=== PATIENT | female | born 1995 | race Caucasian/White ===

== ENCOUNTER 2017-07-29 20:31 | Emergency (ER) | payer MEDICAID, OTHER ==
[2017-07-29 21:02] LABS: Bilirubin Negative (Negative); Blood, Urine Negative (Negative); Glucose, Urine (Dipstick) Negative (Negative); Ketone, Urine > or equal to 80 mg/dL (Negative); Nitrite Negative (Negative); Protein, Urine (Dipstick) Trace mg/dL (Neg-Trace)
[2017-07-29] MEDS ORDERED: Mag-Al 1200 mg/1200 mg/30 ML UDCUP ONE (21:36)
[2017-07-29] MEDS ORDERED: Lidocaine Viscous Sol 2% 15 ml UD Cup ONE (21:36)
[2017-07-29 21:38] LABS: #Lymphocytes 1.5 thou/uL (1.20-3.40); #Monocytes 0.5 thou/uL (0.11-0.59); #Neutrophils 7.3 thou/uL (1.40-6.50); %Basophils 0.5 % (0.0-1.0); %Eosinophils 0.4 % (0.0-10.0); %Lymphocytes 15.9 % (21.0-51.0); %Monocytes 5.6 % (0.0-10.0); Hematocrit 38.3 % (36.0-47.0); Mean Platelet Volume 8.8 fL (7.4-10.4); Red Blood Cell (RBC) Count 3.77 mill/uL (4.20-5.40); White Blood Cell (WBC) Count 9.5 thou/uL (4.8-10.8)
[2017-07-29] MEDS ORDERED: Metoclopramide HCl 10 MG TAB PO SCH (21:45)
[2017-07-29 21:50] LABS: ALT (SGPT) 17 U/L (8-55); AST (SGOT) 18 U/L (5-34); Alkaline Phosphatase 48 U/L (40-150); Anion Gap 13 mmol/L (10-20); BUN (Urea Nitrogen) 8 mg/dL (7.0-18.7); Bilirubin, Total 0.6 mg/dL (0.2-1.2); Calc. Creatinine Clearance 0 mL/min (70-130); Calcium 9.3 mg/dL (7.8-10.44); Carbon Dioxide 22 mmol/L (22-29); Chloride 104 mmol/L (98-107); Estimated GFR-MDRD Greater than 90; Globulin 3.3 g/dL (2.4-3.5); Lipase 13 U/L (8-78); Protein, Total 7.2 g/dL (6.0-8.3)
== END 2017-07-29 23:36 | disposition home or self-care (01) ==
LOC: ERS 20:31
DX: O99.611 Diseases of the digestive system complicating pregnancy, first trimester (principal); K52.9 Noninfective gastroenteritis and colitis, unspecified; O99.341 Other mental disorders complicating pregnancy, first trimester; F41.9 Anxiety disorder, unspecified; Z79.899 Other long term (current) drug therapy; Z3A.13 13 weeks gestation of pregnancy
CPT/HCPCS: 36415; 80053; 81003; 83690; 84702; 85025

== ENCOUNTER 2017-09-21 10:34 | Outpatient (CLI) | payer OTHER ==
--- NOTE | 2017-09-21 13:14 | ULT ---
OB ULTRASOUND: HISTORY: female. Evaluate size, dates, and anatomy. COMPARISON: None. TECHNIQUE: Multiplanar araya-scale and color Doppler images were obtained in a transabdominal ultrasound. FINDINGS: There is a single live intrauterine with a heart rate of 143 beats per minute. A marlin vey was performed, which is unremarkable. The head, intracranial structures, heart, stomach, kidneys , umbilical cord, umbilical cord insertion, spine, face, and extremities were evaluated. Estimated f etal weight is 378 g. The average age of the fetus based off today's examination is 20 weeks and 5 d ays. The following measurements were taken and dates based off these measurements are as follows: BPD: 4.96 cm (21 weeks and 0 days) HC: 18.02 cm (20 weeks and 3 days) AC: 15.30 cm (20 weeks and 4 days) FL: 3.55 cm (21 weeks and 2 days) The placenta is posterior in location without evidence of placenta previa. Amniotic fluid volume is subjective within normal limits. IMPRESSION: Single live intrauterine with an estimated age of 20 weeks and 5 days. POS: [facility]
== END 2017-09-21 10:35 | disposition home or self-care (01) ==
LOC: ULT 10:34
PROVIDERS: ATTEND Family Medicine
DX: Z34.92 Encounter for supervision of normal pregnancy, unspecified, second trimester (principal); Z3A.20 20 weeks gestation of pregnancy
CPT/HCPCS: 76805

== ENCOUNTER 2018-01-03 14:34 | Day surgery (SDC) | payer OTHER ==
[2018-01-03 15:05] VITALS: BP 117/75; TEMP 98; BMI 30.2
--- NOTE | 2018-01-03 15:45 | PDOC.LDHP ---
Labor and Delivery H&P HPI: CC: In triage for irregular (few) contractions at 36b weeks [address] Mendoza Alves HPI: 22 yo g1 at 36 weeks 1 day, gere for few contractions. No LOF, no VB, no headaches, no trauma. No issues. good F< Review of Systems: Complete [place] done and as per HPI Current gestational age (weeks): 36 (1 day) Dating criteria: last menstrual period Grav: 1 Para: 0 Current complications: none Abnormal US findings: No Current medications: pre-kolby vitamins Previous surgical history: none Allergies/Adverse Reactions: Allergies Allergy/AdvReac Type Severity Reaction Status Date / Time No Known Drug Allergies Allergy Unverified 07/29/17 21:39 Social history: none - Physical Exam Vital signs reviewed and normal: yes General: NAD Heart: RRR Lungs: CTAB Abdomen: gravid Extremeties: no edema FHT: category 1 [place] contractions every: Few - Vaginal Exam cm dilated: 0 Station: -3 - Assessment Threatened labor - Plan Plan: observation in L&D, other (No evidence true labor at this time No real contraction pattern OK to keep follow up patient seen at bedside)
== END 2018-01-03 16:10 | disposition home health service (06) ==
LOC: L&D/OP 14:34
PROVIDERS: ATTEND Family Medicine
DX: O47.03 False labor before 37 completed weeks of gestation, third trimester (principal); Z3A.36 36 weeks gestation of pregnancy; Z79.899 Other long term (current) drug therapy
CPT/HCPCS: 59025; 99282

== ENCOUNTER 2018-02-03 09:54 | Inpatient (IN) | payer OTHER ==
--- NOTE | 2018-02-03 01:36 | HP ---
HISTORY OF PRESENT ILLNESS: This is a 22-year-old white female G1, P0 at 40 weeks and 4 days female admitted for post-date induction. Patient has been having contractions for the past several days. S he was seen in the office on the day prior to admit and had to dilated 2-3 cm, 50%, +1 any anterior p osition. No complaints of rupture of membranes. PAST MEDICAL HISTORY: Unremarkable. PAST SURGICAL HISTORY: None. FAMILY HISTORY: Unremarkable. SOCIAL HISTORY: She works for a [employer]. She is a nonsmoker, does not drink, is . REVIEW OF SYSTEMS: As above. PHYSICAL EXAMINATION: VITAL SIGNS: Stable, afebrile. HEENT: Clear. HEART: Regular rate and rhythm without murmur. LUNGS: Clear. ABDOMEN: Soft, gravid. EXTREMITIES: With no edema. LABORATORY DATA AND X-RAY FINDINGS: GBS negative, HIV negative. Hematocrit 32. GC chlamydia negati ve. Paps are normal. History of chlamydia treated. RPR negative. Thyroid normal. Hepatitis B neg ative. HIV negative. Blood type A minus RhoGAM has been given. Rubella immune. ASSESSMENT: 1. A 40 weeks 4-day intrauterine in early labor. 2. Rh negative, RhoGAM has been given. 3. History of chlamydia treated and retested negative. PLAN: 1. Routine L&D orders. 2. Routine anesthesia eval. 3. Anticipate vaginal delivery. 4. Pitocin augmentation.
[2018-02-03 10:08] VITALS: BMI 31.2
[2018-02-03] MEDS ORDERED: HYDROcodone/Acetaminophen 5/325 mg Tablet PO PRN (10:54)
[2018-02-03] MEDS ORDERED: Ibuprofen 800 MG TAB PO PRN (10:54)
[2018-02-03] MEDS ORDERED: Misoprostol 200 MCG TAB PR PRN (10:54)
[2018-02-03] MEDS ORDERED: NS / Oxytocin 40 units/1000ml 1,000 ML IV PRN (10:54)
[2018-02-03] MEDS ORDERED: Lidocaine 1% (PF) 30 ML VIAL SC PRN (10:54)
[2018-02-03] MEDS ORDERED: Acetaminophen 500 MG TAB PO PRN (10:54)
[2018-02-03] MEDS ORDERED: Ondansetron HCl/PF 4 MG/2 ML Vial IVP PRN ×2 (10:54→18:50)
[2018-02-03] MEDS ORDERED: Butorphanol Tartrate 1 MG/ML VIAL SLOW IVP PRN (10:54)
[2018-02-03] MEDS ORDERED: Promethazine HCl 25 MG/ML VIAL IM PRN ×2 (10:54→18:50)
[2018-02-03] MEDS ORDERED: NS w/ Oxytocin 10 units 500 ML IV SCH (10:54)
[2018-02-03 11:35] LABS: Hemoglobin 10.6 g/dL (12.0-16.0); Mean Corpuscular HGB CONC 34.5 g/dL (32.0-36.0); Mean Corpuscular Hemoglobin 30.6 pg (27.0-31.0); Mean Corpuscular Volume 88.8 fL (78.0-98.0); Mean Platelet Volume 10.4 fL (7.4-10.4); Platelet Count 107 thou/uL (130-400); RBC Distribution Width 13.2 % (11.5-14.5); Red Blood Cell (RBC) Count 3.47 mill/uL (4.20-5.40); White Blood Cell (WBC) Count 7.5 thou/uL (4.8-10.8)
[2018-02-03 11:54] LABS: HBSAg Index 0.16 S/CO (0-0.99); Hep B Surf Ag Non-Reactive S/CO (NonReactive)
[2018-02-03 11:55] LABS: Syphilis Antibody Nonreactive (Nonreactive); Syphilis Antibody Index 0.04 S/CO (<1.00 Non-Reactive)
[2018-02-03] MEDS: Lactated Ringer's 1,000 ML IV SCH ×3 (12:50→18:44)
[2018-02-03] MEDS ORDERED: Misoprostol 100 MCG TAB VAG SCH (14:00)
[2018-02-03] MEDS ORDERED: Bupivacaine 0.75% 13.4 ML, fentaNYL Citrate/PF 400 MCG in Sodium Chloride 0.9% 78.6 ML EPIDURAL SCH (15:00)
[2018-02-03] MEDS ORDERED: DISCONTINUE ALL PREVIOUS NARCOTICS FS SCH (15:00)
[2018-02-03] MEDS ORDERED: Acetaminophen 325 MG TAB PO PRN (18:50)
[2018-02-03] MEDS ORDERED: ePHEDrine/0.9% NaCl/PF SYRINGE 50 mg/10 ml SLOW IVP PRN (18:50)
[2018-02-03] MEDS ORDERED: Lactated Ringer's 500 ML IV PRN (18:50)
[2018-02-03] MEDS ORDERED: Naloxone HCl 0.4 mg/ml Vial IVP PRN ×2 (18:50)
[2018-02-03] MEDS ORDERED: diphenhydrAMINE 50 MG/ML VIAL IVP PRN (18:50)
[2018-02-03] MEDS ORDERED: Eucerin (Mineral Oil/Petrolatum,White) 30 gm Jar TOP PRN (18:50)
[2018-02-03] MEDS ORDERED: Communication Order-Pharmacy FS SCH (19:00)
[2018-02-03] MEDS ORDERED: Fentanyl 4mcg/Marcaine 0.1% Cassette 100 ML EPIDURAL SCH (19:00)
[2018-02-04] MEDS ORDERED: Benzocaine/Menthol 20-0.5% 60 ML CAN TOP PRN (00:22)
[2018-02-04] MEDS ORDERED: Milk Of Magnesia 30 ML UDCUP PO PRN (00:22)
[2018-02-04] MEDS ORDERED: Adacel (T-DAP) 0.5 ML VIAL IM ONE (00:22)
[2018-02-04] MEDS ORDERED: NS / Oxytocin 40 units/1000ml 1,000 ML IV SCH (00:22)
[2018-02-04] MEDS ORDERED: diphenhydrAMINE 25 MG CAP PO PRN (00:22)
[2018-02-04] MEDS ORDERED: Bisacodyl 10 MG SUPP PR PRN (00:22)
[2018-02-04] MEDS ORDERED: Lanolin Ointment 7 GM TUBE TOP PRN (00:22)
--- NOTE | 2018-02-04 05:32 | DN ---
DATE OF DELIVERY: 02/03/2018 PREOPERATIVE DIAGNOSIS: Postdates. POSTOPERATIVE DIAGNOSES: 1. Postdates 2. Cord around the neck x1. PROCEDURE: Spontaneous vaginal delivery. SURGEON: Mendoza Sanderson M.D. PROCEDURE: This 22-year-old white female, G1, P0 taken to delivery room, complete and pushing. The patient prepped and draped sterilely. Delivered a baby boy with Apgars 8 at 1 minute and 9 at 5 aicha acosta. Baby breathed and cried vigorously upon delivery. No lacerations were present. Estimated bloo d loss was 350 mL. Mother and baby did well.
[2018-02-04 06:13] LABS: Hemoglobin 10.2 g/dL (12.0-16.0); Mean Corpuscular HGB CONC 33.3 g/dL (32.0-36.0); Mean Corpuscular Hemoglobin 29.8 pg (27.0-31.0); Mean Corpuscular Volume 89.3 fL (78.0-98.0); Mean Platelet Volume 10.5 fL (7.4-10.4); Platelet Count 118 thou/uL (130-400); RBC Distribution Width 13.2 % (11.5-14.5); Red Blood Cell (RBC) Count 3.43 mill/uL (4.20-5.40); White Blood Cell (WBC) Count 11.3 thou/uL (4.8-10.8)
[2018-02-04] MEDS ORDERED: Sodium Chloride 0.9% 10 ML ONE (07:51)
[2018-02-04] MEDS: Sodium Chloride 0.9% 10 ML ONE ×2 (07:52→09:44)
[2018-02-04] MEDS: Docusate Calcium (SURFAK) 240 MG CAP PO SCH ×3 (07:56→21:57)
[2018-02-04] MEDS: Prenatal Vitamin 1 TAB PO SCH (07:56)
[2018-02-04] MEDS: Ibuprofen 800 MG TAB PO PRN ×2 (08:25→15:09)
[2018-02-04] MEDS: Ferrous Sulfate 325 MG TAB PO SCH ×2 (09:44→09:53)
[2018-02-04] MEDS ORDERED: Bupivacaine 0.25% HCL 30 ML VIAL ONE (14:52)
[2018-02-04] MEDS ORDERED: Lidocaine 2% MPF 10 ML AMP (For Epidural Use) ONE (14:52)
[2018-02-05 08:09] VITALS: BP 134/79; TEMP 98.3
[2018-02-05] MEDS: Docusate Calcium (SURFAK) 240 MG CAP PO SCH (08:31)
[2018-02-05] MEDS: Prenatal Vitamin 1 TAB PO SCH (08:31)
[2018-02-05] MEDS: Ferrous Sulfate 325 MG TAB PO SCH (08:31)
== END 2018-02-05 10:07 | disposition home or self-care (01) | DRG 775 ==
LOC: L&D 09:54 → 3SW 02-04 00:17
PROVIDERS: ADMIT Family Medicine; ATTEND Family Medicine
PROC: 10E0XZZ Delivery of Products of Conception, External Approach (ICD-10-PCS; principal; 2018-02-03)
PROC: 3E0334Z Introduction of Serum, Toxoid and Vaccine into Peripheral Vein, Percutaneous Approach (ICD-10-PCS; 2018-02-03)
PROC: 10907ZC Drainage of Amniotic Fluid, Therapeutic from Products of Conception, Via Natural or Artificial Opening (ICD-10-PCS; 2018-02-03)
PROC: 0HQ9XZZ Repair Perineum Skin, External Approach (ICD-10-PCS; 2018-02-03)
DX: O48.0 Post-term pregnancy (principal); O36.0930 Maternal care for other rhesus isoimmunization, third trimester, not applicable or unspecified; Z3A.40 40 weeks gestation of pregnancy; Z37.0 Single live birth; O70.0 First degree perineal laceration during delivery
CPT/HCPCS: 36415; 51702; 85027; 85461; 86780; 86850; 86900; 86901; 87340; 90384; 96372; A4216; J2001; J3010; J7050; S0020